=== PATIENT | male | born 1950 | race African-American/Black ===

== ENCOUNTER 2016-12-31 16:04 | Inpatient (IN) | payer MEDICARE, MEDICAID ==
[~2016-12-31] VITALS: Ht 175.3 cm; Wt 94.3 kg
[~2016-12-31 16:04] MED LIST: ALBU8.5H2 IH; GABA-532 PO; NAPR375T3 PO
[2016-12-31] MEDS ORDERED: ALBUTEROL FS 2.5 MG/3 ML VIAL.NEB ONE ×2 (16:15→17:40)
[2016-12-31] MEDS ORDERED: IPRATROPIUM NEB FS 0.5 MG/2.5 ML AMPUL.NEB ONE (16:16)
[2016-12-31] MEDS ORDERED: predniSONE 20 MG TABLET ONE (16:22)
--- NOTE | 2016-12-31 16:22 | NUR ---
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
[2016-12-31] MEDS ORDERED: predniSONE 20 MG TABLET PO ONE (16:30)
[2016-12-31] MEDS ORDERED: IPRATROPIUM NEB FS 0.5 MG/2.5 ML AMPUL.NEB NEB ONE (16:30)
[2016-12-31] MEDS ORDERED: ALBUTEROL FS 2.5 MG/3 ML VIAL.NEB NEB ONE ×2 (16:30→18:00)
[2016-12-31] MEDS ORDERED: ASPIRIN EC 81 MG TABLET.DR PO ONE (16:56)
[2016-12-31 16:59] LABS: ALBUMIN 3.7 g/dL (3.4-5.0); BILIRUBIN,DIRECT 0.1 mg/dL (0.0-0.2); BILIRUBIN,TOTAL 0.5 mg/dL (0.2-1.0); CALCIUM, SERUM 8.7 mg/dL (8.5-10.1); CREATININE 1.3 mg/dL (0.6-1.3); POTASSIUM 3.9 mmol/L (3.5-5.1); TOTAL PROTEIN, SERUM 7.5 g/dL (6.4-8.2); TROPONIN I 0.15 ng/mL (0.00-0.056)
[2016-12-31] MEDS ORDERED: ASPIRIN 81 MG TAB.CHEW PO ONE (17:00)
[2016-12-31 17:02] LABS: BASOPHILS # (AUTO) 0.1 /CMM (0.0-0.2); BASOPHILS % (AUTO) 1.4 % (0.0-2.0); EOSINOPHILS # (AUTO) 0.5 /CMM (0.0-0.7); EOSINOPHILS % (AUTO) 8.1 % (0.0-6.0); HEMATOCRIT 44 % (39-51); HEMOGLOBIN 14.3 g/dL (13.5-17.5); LYMPHOCYTES # (AUTO) 1.6 /CMM (0.8-4.8); LYMPHOCYTES % (AUTO) 25.7 % (20.0-44.0); MEAN CORPUSCULAR HEMOGLOBIN 32 PG (26.0-33.0); MEAN CORPUSCULAR HGB CONC 33 g/dl (31.0-36.0); MEAN CORPUSCULAR VOLUME 98 fL (80-96); MONOCYTES # (AUTO) 0.5 /CMM (0.1-1.30); MONOCYTES % (AUTO) 8.1 % (2.0-12.0); NEUTROPHILS # (AUTO) 3.6 /CMM (1.8-8.9); NEUTROPHILS % (AUTO) 56.7 % (43.0-81.0); PLATELET COUNT (AUTO) 302 /CMM (150-450); RDW COEFFICIENT OF VARIATION 13.4 (11.5-15.0); RED BLOOD CELL COUNT(AUTO) 4.51 MIL/uL (4.5-6.0); WHITE BLOOD COUNT (AUTO) 6.4 K/uL (4.3-11.0)
[2016-12-31] MEDS ORDERED: Magnesium 1GM/D5W 100ML PREMIX 200 ML IV ONE ×2 (17:58→18:33)
[2016-12-31] MEDS ORDERED: LEVOFLOXACIN (750 MG) 750 MG TABLET PO SCH (18:00)
[2016-12-31] MEDS ORDERED: TIOT18CA3 INH (18:10)
[2016-12-31] MEDS ORDERED: IV SET PRIMARY PUMP SET 1 EA INFUS.SET MC ONE (18:33)
[2016-12-31] MEDS ORDERED: LEVOFLOXACIN (750 MG) 750 MG TABLET ONE (18:33)
[2016-12-31] MEDS ORDERED: MAG HYDROX/AL HYDROX/SIMETH 30 ML UDC PO PRN (19:00)
[2016-12-31] MEDS ORDERED: MAGNESIUM HYDROXIDE 30 ML UDC PO PRN (19:00)
[2016-12-31] MEDS ORDERED: IPRATROPIUM NEB FS 0.5 MG/2.5 ML AMPUL.NEB NEB PRN (19:00)
[2016-12-31] MEDS ORDERED: ONDANSETRON HCL/PF 4 MG/2 ML VIAL IVP PRN (19:00)
[2016-12-31] MEDS ORDERED: HYDROCODONE/APAP 5/325MG 1 EACH TABLET PO PRN (19:00)
[2016-12-31] MEDS ORDERED: Z GUARD REMEDY 2 OZ OINT TP PRN (19:00)
[2016-12-31] MEDS ORDERED: ALBUTEROL FS 2.5 MG/0.5 ML VIAL.NEB NEB PRN (19:00)
--- NOTE | 2016-12-31 19:20 | NUR ---
PT REPORT RECIEVED FROM REJI PLUMMER, PT STATES HE IS FEELING BETTER, PT ON MONITOR, MD JEISON MADE AWARE WILL CONTINUE TO MONITOR.
[2016-12-31 20:00] VITALS: BP 147/85
--- NOTE | 2016-12-31 20:00 | NUR ---
AUDIO VISUAL ENGINEER NOTES RECEIVED FROM ER PER GEORGINA THIS 66Y.O.MALE FROM HOME,A/O X4,AMBULATORY,WITH CHIEF COMPLAINTS OF SOB DUE TO ASTHMA EPISODE FROM HOME.WAS GIVEN ALBUTEROL/ATROVENT BREATHING TREATMENT IN ER WITH RELIEF.NO SKIN ISSUES.ABDOMEN SLIGHTLY DISTENDED BUT SOFT.PER PATIENT HE'S LAST BM WAS FRIDAY 12/29 AND HE COULD NOT PASS GAS. WITH KNOWN HX OF SPINAL STENOSIS WITH SURGERY ON 04/30 2008.WHEEZING NOTED POST EPISODE HEN HE COUGHS.NO SOB.SALINE LOCK LEFT AC INTACT AND PATENT.CALL LIGHT IN REACH,NEEDS ANTICIPATED.
[2016-12-31 21:00] VITALS: BP 147/85
[2016-12-31] MEDS: ALBUTEROL FS 2.5 MG/0.5 ML VIAL.NEB NEB SCH (21:33)
[2016-12-31] MEDS: IPRATROPIUM NEB FS 0.5 MG/2.5 ML AMPUL.NEB NEB SCH (21:33)
[2017-01-01] VITALS (8 sets, daily range): BP systolic 135–154; BP diastolic 71–92
[2017-01-01] MEDS: IPRATROPIUM NEB FS 0.5 MG/2.5 ML AMPUL.NEB NEB SCH ×4 (01:29→19:50)
[2017-01-01] MEDS: ALBUTEROL FS 2.5 MG/0.5 ML VIAL.NEB NEB SCH ×4 (01:29→19:50)
--- NOTE | 2017-01-01 01:30 | NUR ---
FISHER TROLL LINE NOTES RT AT BEDSIDE FOR BREATHING TREATMENT SCHEDULED.
--- NOTE | 2017-01-01 03:00 | NUR ---
REHAB ASSISTANT NOTES RT AT BEDSIDE DOING EKG ORDERED.
--- NOTE | 2017-01-01 06:04 | NUR ---
FRAMING MILL OPERATOR NOTES NO EPISODE OF SOB.BREATHING TX TOLERATED WELL.WHEEZING ON EXERTION.INSTRUCTED NPO AFTER MIDNIGHT TILL SEEN BY CARDIO FOR POSSIBLE TEST OR PROCEDURE.IN NI ACUTE DISTRESS.NEEDS ATTENDED.WILL ENDORSE TO DAY NURSE FOR DOC.
[2017-01-01 07:02] LABS: BASOPHILS % (AUTO) 0.2 % (0.0-2.0); HEMATOCRIT 41 % (39-51); HEMOGLOBIN 13.4 g/dL (13.5-17.5); LYMPHOCYTES # (AUTO) 0.7 /CMM (0.8-4.8); LYMPHOCYTES % (AUTO) 9.1 % (20.0-44.0); MEAN CORPUSCULAR HEMOGLOBIN 32 PG (26.0-33.0); MEAN CORPUSCULAR HGB CONC 33 g/dl (31.0-36.0); MEAN CORPUSCULAR VOLUME 99 fL (80-96); MONOCYTES # (AUTO) 0.1 /CMM (0.1-1.30); MONOCYTES % (AUTO) 1.6 % (2.0-12.0); NEUTROPHILS % (AUTO) 89.1 % (43.0-81.0); PLATELET COUNT (AUTO) 291 /CMM (150-450); RDW COEFFICIENT OF VARIATION 13.2 (11.5-15.0); RED BLOOD CELL COUNT(AUTO) 4.18 MIL/uL (4.5-6.0); WHITE BLOOD COUNT (AUTO) 7.9 K/uL (4.3-11.0)
[2017-01-01 07:21] LABS: ALBUMIN 3.4 g/dL (3.4-5.0); BILIRUBIN,TOTAL 0.5 mg/dL (0.2-1.0); CALCIUM, SERUM 8.8 mg/dL (8.5-10.1); CREATININE 1.2 mg/dL (0.6-1.3); PHOSPHORUS 2.9 mg/dL (2.5-4.9); POTASSIUM 4.4 mmol/L (3.5-5.1); TOTAL PROTEIN, SERUM 7.1 g/dL (6.4-8.2)
--- NOTE | 2017-01-01 08:00 | NUR ---
METAL HANGING HELPER AM NOTES RECEIVED PT A/O X4,AMBULATORY,RESPIRATIONS NON LABORED ON ROOM AIR.NO SKIN ISSUES.ABDOMEN SLIGHTLY DISTENDED BUT SOFT.PER PATIENT HE'S LAST BM WAS FRIDAY 12/29 AND HE COULD NOT PASS GAS. PT C/O CONSTIPATION-WILL ADDRESS CONCERN TO MD.WITH KNOWN HX OF SPINAL STENOSIS WITH SURGERY ON 04/30 2008.NO SOB OR DISTRESS NOTED.WITH C/O NECK PAIN.NORCO PO GIVEN PRN FOR PAIN MGT.SALINE LOCK LEFT AC INTACT AND PATENT.CALL LIGHT WITHIN REACH,
[2017-01-01] MEDS: PANTOPRAZOLE 40 MG TABLET.DR PO SCH (08:27)
[2017-01-01] MEDS: ACETAMINOPHEN 325 MG TABLET PO PRN ×2 (08:28→19:40)
[2017-01-01] MEDS: ASPIRIN 81 MG TAB.CHEW PO SCH (10:38)
[2017-01-01] MEDS: methylPREDNISolone SOD SUCC 125 MG/2ML VIAL IV SCH ×2 (10:38→18:00)
[2017-01-01] MEDS: ATORVASTATIN 10 MG TABLET PO SCH (10:39)
[2017-01-01] MEDS: hydrALAZINE HCL 50 MG TABLET PO SCH ×3 (10:39→17:56)
--- NOTE | 2017-01-01 14:00 | NUR ---
ADMINISTERED TAP WATER ENEMA ON THE PT AND PT STATED THAT BROWN WATER JUST CAME OUT.PT PASSED OUT GAS OFTEN.ENCOURAGED PT TO DRINK FLUIDS AND AMBULATE AROUND THE HALLWAY.PT STATED THAT HE WAS HAVING SOB.PT'S O2 SAT IS 97-98%ROOM AIR WHILE IN BED AND NEVER EVEN USED O2 AT ALL.PT GETS BREATHING TX.
--- NOTE | 2017-01-01 16:00 | NUR ---
PT AMBULATES AROUND THE HALLWAY WITHOUT ANY SOB NOTED.
[2017-01-01] MEDS ORDERED: IV SET PRIMARY PUMP SET 1 EA INFUS.SET MC ONE (18:12)
[2017-01-01] MEDS: LEVOFLOXACIN 500 MG /D5W 100ML 500 MG in PREMIX 1 EA IV SCH (18:26)
--- NOTE | 2017-01-01 19:15 | NUR ---
MS RN NOTES ON BED A/O X4.ABLE TO VERBALIZED NEEDS.ABDOMEN REMAINS SLIGHTLY DISTENDED,BUT SOFT CLAIMED HE ALREADY PASSING GAS.TAP WATER ENEMA ADMINISTERED BY DAY NURSE ORDERED.IV ABX IN PROGRESS VIA IV PUMP ON LEFT HAND,SITE PATENT.ENCOURAGED AMBULATION.CALL LIGHT IN REACH,NEEDS ANTICIPATED.
--- NOTE | 2017-01-01 19:40 | NUR ---
MS RN NOTES PAIN MANAGEMENT C/O HEADACHE,MEDICATED WITH TYLENOL 650MG PO PER PATIENT REQUEST,WITH ORDER PRN FOR MILD PAIN.
--- NOTE | 2017-01-01 23:25 | NUR ---
MS RN NOTES C/O HEADACHE 5/10 ON PAIN SCALE.,MEDICATED WITH NORCO 5/325 MG.1 TAB PO ORDERED.
--- NOTE | 2017-01-02 00:50 | NUR ---
MS RN NOTES AWAKE,UPSET.ROOM MATE SO CONFUSED,TOO LOUD TO SPEAK DUE TO NATIVE.TRANSFERRED TO ANOTHER ROOM 314-1
[2017-01-02] MEDS: ZOLPIDEM TARTRATE 5 MG TABLET PO PRN ×2 (00:58→21:42)
--- NOTE | 2017-01-02 00:58 | NUR ---
MS RN NOTES MEDICATED WITH AMBIEN 5MG PO FOR INSOMNIA,PER PATIENT REQUEST
[2017-01-02] MEDS: IPRATROPIUM NEB FS 0.5 MG/2.5 ML AMPUL.NEB NEB SCH ×4 (01:51→20:05)
[2017-01-02] MEDS: ALBUTEROL FS 2.5 MG/0.5 ML VIAL.NEB NEB SCH ×4 (01:51→20:05)
--- NOTE | 2017-01-02 06:25 | NUR ---
MS RN NOTES SLEEPING AT THIS TIME.UNABLE TO ADMINISTER REMAINING ENEMA SOLUTION FROM DAY SHIFT.AMBULATE WITH STEADY GAIT.CALL LIGHT IN REACH,NEEDS ATTENDED.
[2017-01-02 06:48] LABS: EOSINOPHILS % (AUTO) 0.1 % (0.0-6.0); HEMATOCRIT 43 % (39-51); HEMOGLOBIN 14.1 g/dL (13.5-17.5); LYMPHOCYTES # (AUTO) 0.9 /CMM (0.8-4.8); LYMPHOCYTES % (AUTO) 7.8 % (20.0-44.0); MEAN CORPUSCULAR HEMOGLOBIN 32 PG (26.0-33.0); MEAN CORPUSCULAR HGB CONC 33 g/dl (31.0-36.0); MEAN CORPUSCULAR VOLUME 98 fL (80-96); MONOCYTES # (AUTO) 0.5 /CMM (0.1-1.30); NEUTROPHILS # (AUTO) 10.2 /CMM (1.8-8.9); NEUTROPHILS % (AUTO) 88.1 % (43.0-81.0); PLATELET COUNT (AUTO) 287 /CMM (150-450); RDW COEFFICIENT OF VARIATION 13.4 (11.5-15.0); RED BLOOD CELL COUNT(AUTO) 4.36 MIL/uL (4.5-6.0); WHITE BLOOD COUNT (AUTO) 11.6 K/uL (4.3-11.0)
[2017-01-02 07:07] LABS: MAGNESIUM 2.1 mg/dL (1.8-2.4); PHOSPHORUS 3.3 mg/dL (2.5-4.9)
[2017-01-02 08:00] VITALS: BP 158/83
--- NOTE | 2017-01-02 08:20 | NUR ---
MS RN RECEIVED ON BED, AWAKE,ALERT,ORIENTED X4,NOT IN ANY FORM OF DISTRESS, RESPIRATIONS EVEN AND UNLABORED,NO SOB NOTED, LUNGS ARE CLEAR,ABDOMEN SOFT,POSITIVE BOWEL SOUNDS, DENIES PAIN AT THIS TIME, WILL MONITOR PATIENT.
[2017-01-02] MEDS: ASPIRIN 81 MG TAB.CHEW PO SCH ×2 (09:00→09:21)
[2017-01-02] MEDS: methylPREDNISolone SOD SUCC 125 MG/2ML VIAL IV SCH ×2 (09:21→17:53)
[2017-01-02] MEDS: ATORVASTATIN 10 MG TABLET PO SCH (09:21)
[2017-01-02] MEDS: PANTOPRAZOLE 40 MG TABLET.DR PO SCH (09:22)
[2017-01-02] MEDS: hydrALAZINE HCL 50 MG TABLET PO SCH ×3 (09:22→17:53)
--- NOTE | 2017-01-02 09:30 | NUR ---
MS PLUMMER BREAKFAST SERVED,DUE MEDS GIVEN,TOLERATED WELL.
[2017-01-02] MEDS ORDERED: BISACODYL SUPP (10 MG) 10 MG/SUPP.RECT SUPP.RECT RC PRN (11:00)
[2017-01-02] MEDS: ACETAMINOPHEN 325 MG TABLET PO PRN (15:29)
[2017-01-02 16:00] VITALS: BP 150/73
--- NOTE | 2017-01-02 17:30 | NUR ---
MS RN PATIENT ON BED, ALL NEEDS ATTENDED,NO CHANGE OF CONDITION.
[2017-01-02] MEDS: LEVOFLOXACIN 500 MG /D5W 100ML 500 MG in PREMIX 1 EA IV SCH (17:53)
--- NOTE | 2017-01-02 19:30 | NUR ---
MS RN OPENING NOTES: PATIENT IN BED, AOX4, ON ROOM AIR, BREATHING EVEN AND UNLABORED, NO SOB , HOWEVER, EXPIRATORY WHEEZING WAS HEARD UPON AUSCULTATION. PER PATIENT, HE DOES NOT FEEL ANY DIFFICULTY BREATHING, OR ANY CHEST PAIN AT THIS TIME, ONLY BLOATING. PIV ACCESS OVER L HAND G 22 INTACT AND PATENT TO FLUSH. PROVIDED FOR COMFORT AND SAFETY. ELEVATED HOB. PROVIDED FOR COMFORT AND SAFETY. WILL CONT TO MONITOR.
[2017-01-02 20:00] VITALS: BP 148/85
--- NOTE | 2017-01-02 21:42 | NUR ---
RN NOTES: PER PATIENT, HE HAD A VERY SMALL BM AFTER DINNER, BUT STILL COMPLAINS OF BLOATNG AND CONSTIPATION. ABDOMEN IS DISTENDED, BOWEL SOUNDS HYPOACTIVE. PATIENT WAS ASKING FOR LAXATIVE AT THIS TIME. ADMINISTERED MOM PRN. WILL CONT TO MONITOR.
[2017-01-03] MEDS: ALBUTEROL FS 2.5 MG/0.5 ML VIAL.NEB NEB SCH ×3 (02:11→13:43)
[2017-01-03] MEDS: IPRATROPIUM NEB FS 0.5 MG/2.5 ML AMPUL.NEB NEB SCH ×3 (02:11→13:43)
[2017-01-03] MEDS: ACETAMINOPHEN 325 MG TABLET PO PRN (06:34)
--- NOTE | 2017-01-03 07:01 | NUR ---
MS RN CLOSING NOTES: PATIENT IN BED, AOX4, ON ROOM AIR, BREATHING EVEN AND UNLABORED, STILL AUSCULTATED SLIGHT EXPIRATORY WHEEZING. PATIENT C/O HEADACHE SCALED AT 4/10, ADMINISTERED TYLENOL 650 MG PO. PROVIDED FOR COMFORT AND SAFETY. PIV ACCESS OVER L HAND G 22 INTACT AND PATENT TO FLUSH. WILL ENDORSE TO AM RN FOR DOC.
[2017-01-03 07:13] LABS: HEMATOCRIT 45 % (39-51); HEMOGLOBIN 14.8 g/dL (13.5-17.5); LYMPHOCYTES # (AUTO) 0.8 /CMM (0.8-4.8); LYMPHOCYTES % (AUTO) 6.1 % (20.0-44.0); MEAN CORPUSCULAR HEMOGLOBIN 32 PG (26.0-33.0); MEAN CORPUSCULAR HGB CONC 33 g/dl (31.0-36.0); MEAN CORPUSCULAR VOLUME 97 fL (80-96); MONOCYTES # (AUTO) 0.8 /CMM (0.1-1.30); MONOCYTES % (AUTO) 5.6 % (2.0-12.0); NEUTROPHILS # (AUTO) 11.9 /CMM (1.8-8.9); NEUTROPHILS % (AUTO) 88.3 % (43.0-81.0); PLATELET COUNT (AUTO) 295 /CMM (150-450); RDW COEFFICIENT OF VARIATION 13.4 (11.5-15.0); RED BLOOD CELL COUNT(AUTO) 4.58 MIL/uL (4.5-6.0); WHITE BLOOD COUNT (AUTO) 13.4 K/uL (4.3-11.0)
[2017-01-03 07:27] LABS: CALCIUM, SERUM 8.8 mg/dL (8.5-10.1); CREATININE 1.1 mg/dL (0.6-1.3); MAGNESIUM 2.3 mg/dL (1.8-2.4); PHOSPHORUS 3.5 mg/dL (2.5-4.9); POTASSIUM 4.3 mmol/L (3.5-5.1)
[2017-01-03] MEDS: PANTOPRAZOLE 40 MG TABLET.DR PO SCH (07:38)
[2017-01-03 08:00] VITALS: BP 155/114
--- NOTE | 2017-01-03 08:00 | NUR ---
MS RN NOTE PT. AWAKE, ALERT AND ORIENTED X4. DENIED PAIN AND SOB. SIDE RAILS UP. CALL LIGHT WITHIN REACH. MONITOR CLOSELY.
[2017-01-03] MEDS: ATORVASTATIN 10 MG TABLET PO SCH (08:28)
[2017-01-03] MEDS: hydrALAZINE HCL 50 MG TABLET PO SCH ×2 (08:28→12:31)
[2017-01-03] MEDS: ASPIRIN 81 MG TAB.CHEW PO SCH (08:28)
[2017-01-03] MEDS: methylPREDNISolone SOD SUCC 125 MG/2ML VIAL IV SCH (09:00)
--- NOTE | 2017-01-03 10:30 | NUR ---
NOTED ABDOMINAL DISTENSION, BUT DENIED PAIN. GIVEN DUCOLAX SUPPOSITORY.
--- NOTE | 2017-01-03 11:00 | NUR ---
HAD SMALL AMOUNT BM. IMPROVED ABD DISTENSION. DR. JENKINS WAS AWARE OF IT. MONITOR CLOSELY.
[2017-01-03] MEDS ORDERED: LEVO750T21 PO (13:07)
[2017-01-03] MEDS ORDERED: PRED20TA PO (13:07)
[2017-01-03] MEDS ORDERED: Bisacodyl RC (13:07)
[2017-01-03] MEDS: LEVOFLOXACIN 500 MG /D5W 100ML 500 MG in PREMIX 1 EA IV SCH (14:52)
--- NOTE | 2017-01-03 16:10 | NUR ---
PT. AWAKE, ALERT AND ORIENTED X4. DENIED PAIN AND SOB. GAVE 6PM LEVAQUIN IVPB BEFORE DISCHARGE. GIVEN DISCHARGE INSTRUCTION TO THE PT. UNDERSTOOD WELL. REMOVED IV LINE.PT. WILL BE DISCHARGE BY TAXI.
[2017-01-03 16:22] VITALS: BP 128/99
--- NOTE | 2017-01-03 16:40 | NUR ---
DISCHARGED FROM [facility] BY TAXI.
== END 2017-01-03 16:39 | disposition home or self-care (01) | DRG 189 ==
LOC: ER 16:05 → TELE 19:50 → MED 01-01 10:02
PROVIDERS: ADMIT Family Medicine; ATTEND Family Medicine
DX: J96.21 Acute and chronic respiratory failure with hypoxia (principal); I21.4 Non-ST elevation (NSTEMI) myocardial infarction; J44.1 Chronic obstructive pulmonary disease with (acute) exacerbation; J45.901 Unspecified asthma with (acute) exacerbation; G62.9 Polyneuropathy, unspecified; J45.909 Unspecified asthma, uncomplicated; I10 Essential (primary) hypertension; F17.210 Nicotine dependence, cigarettes, uncomplicated; K56.41 Fecal impaction; I27.2 Other secondary pulmonary hypertension
CPT/HCPCS: 36415; 71010-TC; 74000-TC; 80048-TC; 80053-TC; 80076-TC; 83735-TC; 84100-TC; 84484-TC; 85025-TC; 87070-TC; 87081-TC; 93307-TC; 94799-TC; 97001-TC; A4216; A4606; J1956; J2930; J3475; Z7610

== ENCOUNTER 2017-10-21 06:27 | Inpatient (IN) | payer MEDICARE, MEDICAID ==
[~2017-10-21] VITALS: Ht 165.1 cm; Wt 89.8 kg
[~2017-10-21 06:27] MED LIST changes: -ALBU8.5H2 IH; +ALBU8.5H8 IH; +Bisacodyl RC; -GABA-532 PO; +LEVO750T21 PO; -NAPR375T3 PO; +PRED20TA PO; +TIOT18CA3 INH
--- NOTE | 2017-10-21 06:29 | NUR ---
PT RECIEVED FROM [facility] FROM HOME C/O SOB/COUGH X2 HOURS AGO "I FELT LIKE I COULDNT BREATHH WELL" AND PT RECEIVED ALBUTEROL TX EN ROUTE TO SOH. NO C/O PAIN. NO SOB AT THIS POINT WITH SLIGHT WHEEZING IN UPPER LOBES WITH ADEQUATE 02 SATURATION. A/0X4 VSS NAD. WILL CONTINUE TO MONITOR
--- NOTE | 2017-10-21 06:45 | NUR ---
CALLED RT FRO BREATHING TX
--- NOTE | 2017-10-21 06:45 | NUR ---
MANNEQUIN MOLDER AT BEDSIDE
[2017-10-21] MEDS ORDERED: ALBUTEROL FS 2.5 MG/3 ML VIAL.NEB ONE (06:57)
[2017-10-21] MEDS ORDERED: IPRATROPIUM NEB FS 0.5 MG/2.5 ML AMPUL.NEB ONE (06:57)
[2017-10-21] MEDS ORDERED: IPRATROPIUM NEB FS 0.5 MG/2.5 ML AMPUL.NEB NEB ONE ×3 (07:00→09:30)
[2017-10-21] MEDS ORDERED: methylPREDNISolone SOD SUCC 125 MG/2ML VIAL IV ONE (07:00)
[2017-10-21] MEDS ORDERED: ALBUTEROL FS 2.5 MG/3 ML VIAL.NEB NEB ONE ×2 (07:00→09:30)
[2017-10-21] MEDS ORDERED: LEVOFLOXACIN 750 MG /D5W 150ML 150 ML IV ONE ×2 (07:00→07:08)
[2017-10-21] MEDS ORDERED: methylPREDNISolone SOD SUCC 125 MG/2ML VIAL ONE (07:08)
[2017-10-21 07:16] LABS: BASOPHILS # (AUTO) 0.1 /CMM (0.0-0.2); BASOPHILS % (AUTO) 0.9 % (0.0-2.0); EOSINOPHILS # (AUTO) 0.8 /CMM (0.0-0.7); EOSINOPHILS % (AUTO) 8.8 % (0.0-6.0); HEMATOCRIT 40 % (39-51); HEMOGLOBIN 13.4 g/dL (13.5-17.5); LYMPHOCYTES # (AUTO) 2.4 /CMM (0.8-4.8); LYMPHOCYTES % (AUTO) 27.1 % (20.0-44.0); MEAN CORPUSCULAR HEMOGLOBIN 33 PG (26.0-33.0); MEAN CORPUSCULAR HGB CONC 33 g/dl (31.0-36.0); MEAN CORPUSCULAR VOLUME 99 fL (80-96); MONOCYTES # (AUTO) 0.7 /CMM (0.1-1.30); MONOCYTES % (AUTO) 7.2 % (2.0-12.0); PLATELET COUNT (AUTO) 278 /CMM (150-450); RDW COEFFICIENT OF VARIATION 13.6 (11.5-15.0); RED BLOOD CELL COUNT(AUTO) 4.07 MIL/uL (4.5-6.0)
[2017-10-21 07:24] LABS: CALCIUM, SERUM 8.6 mg/dL (8.5-10.1); CREATININE 1.1 mg/dL (0.6-1.3); POTASSIUM 3.7 mmol/L (3.5-5.1)
[2017-10-21 07:31] LABS: TROPONIN I 0.123 ng/mL (0.00-0.056)
[2017-10-21 07:36] LABS: ALBUMIN 3.7 g/dL (3.4-5.0); BILIRUBIN,DIRECT 0.2 mg/dL (0.0-0.2); BILIRUBIN,TOTAL 0.9 mg/dL (0.2-1.0); TOTAL PROTEIN, SERUM 7.7 g/dL (6.4-8.2)
[2017-10-21] MEDS ORDERED: ASPIRIN EC 81 MG TABLET.DR PO ONE (07:49)
[2017-10-21] MEDS ORDERED: ASPIRIN 81 MG TAB.CHEW PO ONE (08:00)
--- NOTE | 2017-10-21 08:58 | NUR ---
ROOM 313.2 KACEY PLUMMER
[2017-10-21] MEDS ORDERED: ONDANSETRON HCL/PF 4 MG/2 ML VIAL IVP PRN (09:00)
[2017-10-21] MEDS ORDERED: CARVEDILOL 6.25 MG TABLET PO SCH (09:00)
[2017-10-21] MEDS ORDERED: MAGNESIUM HYDROXIDE 30 ML UDC PO PRN (09:00)
[2017-10-21] MEDS ORDERED: MAG HYDROX/AL HYDROX/SIMETH 30 ML UDC PO PRN (09:00)
[2017-10-21] MEDS ORDERED: Z GUARD REMEDY 2 OZ OINT TP PRN (09:00)
[2017-10-21] MEDS ORDERED: ALBUTEROL FS 2.5 MG/0.5 ML VIAL.NEB NEB ONE (09:00)
[2017-10-21] MEDS ORDERED: HYDROCODONE/APAP 5/325MG 1 EACH TABLET PO PRN (09:00)
--- NOTE | 2017-10-21 09:10 | NUR ---
GAVE REPORT TO KACEY PLUMMER TELE ROOM 313-2 ADMITTING DX COPD EXACERBATION DR GOLDSTEIN
--- NOTE | 2017-10-21 09:14 | NUR ---
RECEIVED REPORT FROM ER
[2017-10-21 09:30] VITALS: BP 134/83
[2017-10-21] MEDS: ENOXAPARIN SODIUM 40 MG/0.4 ML DISP.SYRIN SQ SCH (09:30)
[2017-10-21] MEDS: methylPREDNISolone SOD SUCC 40 MG/ML VIAL IV SCH ×3 (10:06→17:01)
--- NOTE | 2017-10-21 11:20 | NUR ---
PATIENT ARRIVED TO UNIT VIA A GURNEY AND PLACED IN ROOM 313-2.
[2017-10-21 12:00] VITALS: BP 143/86
[2017-10-21] MEDS: ALBUTEROL FS 2.5 MG/3 ML VIAL.NEB NEB SCH ×4 (13:00→23:20)
[2017-10-21] MEDS: IPRATROPIUM NEB FS 0.5 MG/2.5 ML AMPUL.NEB NEB SCH ×4 (13:00→23:20)
[2017-10-21 16:00] VITALS: BP 136/93
--- NOTE | 2017-10-21 19:24 | NUR ---
RN CLOSING NOTES ENDORSED TO ED SPECIAL EDUCATION TEACHER NURSE. PATIENT IS IN BED NO SIGNS AND SYMPTOMS OF DISTRESS. BREATHING IS BILATERALLY EVEN AND UNLABORED, WHEEZING. ALL NURSING CARE ANTICIPATED AND ATTENDED FOR. PATIENT KEPT CLEAN AND DRY. BED IN LOW POSITION, LOCKED AND TWO SIDE RAILS ARE UP. CALL LIGHT WITHIN REACH FOR SAFETY.
--- NOTE | 2017-10-21 19:49 | NUR ---
RN INITIAL NOTES Received pt sitting upright in bed, watching television. Awake, alert, and responsive. Currently receiving O2 @2L/min via mask, saturating at 97%. c/o shortness of breath after walking to and from the bathroom. Denies any chest pain. peripheral iv to right hand intact, patent. dressing kept clean and dry. reminded pt to use call light when assistance is needed, call light is left within reach. will continue to monitor throughout shift for continuity of care.
[2017-10-21 20:00] VITALS: BP 152/94
[2017-10-22] VITALS: BP 125/78
--- NOTE | 2017-10-22 00:30 | NUR ---
RN NOTES Administer Byers 5/[address] 7/10 to left back. Noted to be effective, PL decrease to 2/10 and is tolerable. Will continue to monitor.
[2017-10-22] MEDS: IPRATROPIUM NEB FS 0.5 MG/2.5 ML AMPUL.NEB NEB SCH ×6 (03:09→23:30)
[2017-10-22] MEDS: ALBUTEROL FS 2.5 MG/3 ML VIAL.NEB NEB SCH ×6 (03:09→23:30)
[2017-10-22 04:00] VITALS: BP 133/82
--- NOTE | 2017-10-22 06:36 | NUR ---
CHEMICAL DEPENDENCY THERAPIST CLOSING NOTES All due meds given, needs met and rendered. Pt remains a/o x4, respirations are even and unlabored, not in any acute distress noted. Currently on O2 @2L/min via NC, saturating at 98%. Denies any pain at this time. Peripheral IV to right hand intact, dressing kept clean and dry. No new skin injuries noted. On tele w/ SR 90. Deneis any chest pain. Pt will continue hospitalization with bronchodilators and steroids. Reminded pt to use call light when assistance is needed, call light left within reach. Will endorse to next shift for continuity of care.
[2017-10-22 07:13] LABS: BASOPHILS % (AUTO) 0.1 % (0.0-2.0); EOSINOPHILS % (AUTO) 0.1 % (0.0-6.0); HEMATOCRIT 38 % (39-51); HEMOGLOBIN 12.8 g/dL (13.5-17.5); LYMPHOCYTES % (AUTO) 9.2 % (20.0-44.0); MEAN CORPUSCULAR HEMOGLOBIN 33 PG (26.0-33.0); MEAN CORPUSCULAR HGB CONC 34 g/dl (31.0-36.0); MEAN CORPUSCULAR VOLUME 99 fL (80-96); MONOCYTES # (AUTO) 0.5 /CMM (0.1-1.30); NEUTROPHILS # (AUTO) 9.9 /CMM (1.8-8.9); NEUTROPHILS % (AUTO) 86.6 % (43.0-81.0); PLATELET COUNT (AUTO) 294 /CMM (150-450); RDW COEFFICIENT OF VARIATION 13.5 (11.5-15.0); RED BLOOD CELL COUNT(AUTO) 3.84 MIL/uL (4.5-6.0); WHITE BLOOD COUNT (AUTO) 11.4 K/uL (4.3-11.0)
[2017-10-22 07:16] LABS: CALCIUM, SERUM 8.4 mg/dL (8.5-10.1); MAGNESIUM 2.1 mg/dL (1.8-2.4); POTASSIUM 4.3 mmol/L (3.5-5.1)
[2017-10-22 08:00] VITALS: BP 129/75
--- NOTE | 2017-10-22 08:00 | NUR ---
RN NOTES RECEIVED PATIENT, AWAKE ALERT AND VERBALLY RESPONSIVE, IN BED RESTING COMFORTABLY, ABLE TO MAKE NEEDS KNOWN. RESPIRATIONS EVEN AND UNLABORED, DENIES ANY PAIN OR DISCOMFORT AT THIS TIME. IV ACCESS TO RIGHT HAND PATENT AND INTACT NO REDNESS OR INFILTRATION NOTED. KEPT CLEAN AND COMFORTABLE, SAFETY MEASURES IN PLACE WILL CONTINUE TO MONITOR
[2017-10-22] MEDS: ENOXAPARIN SODIUM 40 MG/0.4 ML DISP.SYRIN SQ SCH (09:00)
[2017-10-22] MEDS: LEVOFLOXACIN 750 MG /D5W 150ML 750 MG in PREMIX 1 EA IV SCH (09:44)
[2017-10-22] MEDS: methylPREDNISolone SOD SUCC 40 MG/ML VIAL IV SCH ×3 (09:44→16:41)
[2017-10-22] MEDS: ACETAMINOPHEN 325 MG TABLET PO PRN ×2 (10:54→18:36)
[2017-10-22] MEDS: ASPIRIN 81 MG TAB.CHEW PO SCH (10:55)
[2017-10-22] MEDS ORDERED: FLU VACC QS 2017-18(36MOS+)/PF 0.5 ML DISP.SYRIN IM ONE (11:00)
--- NOTE | 2017-10-22 15:57 | NUR ---
spoke with patient, he is alert and pleasant. He lives alone in the upper level apartment that has elevator access. He is ambulatory and independent with adl's. Has no DME or homehealth reported. Patient request assistance with transportation on dc- taxi voucher. Addendum: 10/22/17 at 1557 by ILIR LOZANO RN Amended: Links added.
[2017-10-22 16:00] VITALS: BP 140/76
--- NOTE | 2017-10-22 19:30 | NUR ---
RN NOTES PATIENT, AWAKE ALERT AND VERBALLY RESPONSIVE, IN BED RESTING COMFORTABLY, ABLE TO MAKE NEEDS KNOWN. RESPIRATIONS EVEN AND UNLABORED, DENIES ANY PAIN OR DISCOMFORT AT THIS TIME. IV ACCESS TO LEFT HAND PATENT AND INTACT NO REDNESS OR INFILTRATION NOTED. KEPT CLEAN AND COMFORTABLE, SAFETY MEASURES IN PLACE, ENDORSED TO NEXT SHIFT FOR CONTINUE OF CARE
--- NOTE | 2017-10-22 19:30 | NUR ---
MS RN OPENING NOTES RECEIVED PATIENT, IN BED RESTING COMFORTABLY, A & O X 4. RESPIRATIONS EVEN AND UNLABORED, DENIES ANY PAIN OR ANY ACUTE DISCOMFORT AT THIS TIME. ON O2 @ 2 LPM FOR BREATHING COMFORT. IV ACCESS TO LEFT HAND, SL, PATENT AND INTACT NO REDNESS OR INFILTRATION NOTED. SAFETY MEASURES IN PLACE. BED IN LOW LOCKED POSITION. CALL LIGHT WITHIN REACH. WILL CONTINUE TO MONITOR
[2017-10-22 20:00] VITALS: BP 122/69
[2017-10-22 20:13] VITALS: BP 122/69
--- NOTE | 2017-10-22 21:01 | NUR ---
PT REFUSED CPAP RT APPROACHED THE PT & EXPLAINED THE NEED FOR CPAP, BUT PT REFUSED TO HAVE CPAP ON TONIGHT DESPITE OF EXPLAINING RISKS & BENEFITS. RT WILL ATTEMPT AGAIN LATER IF PT AGREES.
[2017-10-22] MEDS: ZOLPIDEM TARTRATE 5 MG TABLET PO PRN (21:17)
--- NOTE | 2017-10-22 21:17 | NUR ---
PRN AMBIEN GIVEN PATIENT REQUESTED FOR AMBIEN FOR SLEEPLESSNESS. PRN AMBIEN GIVEN & WILL REASSESS FOR EFFECTIVENESS.
--- NOTE | 2017-10-22 21:23 | NUR ---
REFUSED CPAP AGAIN OFFERED CPAP TO THE PT AGAIN ORDERED, PT STATED THAT HE HAS BEEN USING IT BEFORE BUT HE MIGHT GET HEADACHE AGAIN TONIGHT WITH USE OF CPAP, SO HE WANTS TO TRY TONIGHT WITHOUT USE OF CPAP. PT ON O2 @ 2 LMP VIA NC, NO SOB, NO C/O CHEST PAIN @ THIS TIME. CONTINUING TO MONITOR.
--- NOTE | 2017-10-23 | NUR ---
PT refused cpap for tonight, wants to take a break from cpap says it causes headach
[2017-10-23] MEDS: IPRATROPIUM NEB FS 0.5 MG/2.5 ML AMPUL.NEB NEB SCH ×5 (03:30→20:00)
[2017-10-23] MEDS: ALBUTEROL FS 2.5 MG/3 ML VIAL.NEB NEB SCH ×5 (03:30→20:00)
[2017-10-23] MEDS: ACETAMINOPHEN 325 MG TABLET PO PRN ×2 (04:28→21:50)
--- NOTE | 2017-10-23 04:28 | NUR ---
PRN TYLENOL GIVEN PATIENT ASKED FOR TYLENOL FOR HEADACHE. VS CHECKED & WNL. PRN TYLENOL GIVEN. WILL MONITOR FOR EFFECTIVENESS.
--- NOTE | 2017-10-23 07:10 | NUR ---
MS RN CLOSING NOTES PATIENT SLEPT WELL @ NIGHT, A & O X 4. RESPIRATIONS EVEN AND UNLABORED, DENIES ANY PAIN OR ANY ACUTE DISCOMFORT AT THIS TIME. ON O2 @ 2 LPM FOR BREATHING COMFORT. IV ACCESS TO LEFT HAND, SL, PATENT AND INTACT NO REDNESS OR INFILTRATION NOTED. PRN TYLENOL GIVEN FOR HEADACHE & WAS EFFECTIVE. SAFETY MEASURES IN PLACE. BED IN LOW LOCKED POSITION. CALL LIGHT WITHIN REACH. WILL ENDORSE TO AM RN FOR CONTINUITY OF CARE.
--- NOTE | 2017-10-23 07:30 | NUR ---
RN NOTES RECEIVED PATIENT, AWAKE ALERT AND VERBALLY RESPONSIVE, IN BED RESTING COMFORTABLY, ABLE TO MAKE NEEDS KNOWN. RESPIRATIONS EVEN AND UNLABORED, DENIES ANY PAIN OR DISCOMFORT AT THIS TIME. IV ACCESS TO LEFT HAND PATENT AND INTACT NO REDNESS OR INFILTRATION NOTED. KEPT CLEAN AND COMFORTABLE, SAFETY MEASURES IN PLACE WILL CONTINUE TO MONITOR
[2017-10-23 07:41] LABS: HEMATOCRIT 38 % (39-51); HEMOGLOBIN 12.9 g/dL (13.5-17.5); LYMPHOCYTES # (AUTO) 0.9 /CMM (0.8-4.8); LYMPHOCYTES % (AUTO) 6.4 % (20.0-44.0); MEAN CORPUSCULAR HEMOGLOBIN 34 PG (26.0-33.0); MEAN CORPUSCULAR HGB CONC 34 g/dl (31.0-36.0); MEAN CORPUSCULAR VOLUME 100 fL (80-96); MONOCYTES # (AUTO) 0.9 /CMM (0.1-1.30); MONOCYTES % (AUTO) 6.3 % (2.0-12.0); NEUTROPHILS % (AUTO) 87.3 % (43.0-81.0); PLATELET COUNT (AUTO) 298 /CMM (150-450); RDW COEFFICIENT OF VARIATION 13.3 (11.5-15.0); RED BLOOD CELL COUNT(AUTO) 3.82 MIL/uL (4.5-6.0); WHITE BLOOD COUNT (AUTO) 13.8 K/uL (4.3-11.0)
[2017-10-23 07:56] LABS: CALCIUM, SERUM 8.8 mg/dL (8.5-10.1); MAGNESIUM 2.4 mg/dL (1.8-2.4); POTASSIUM 4.5 mmol/L (3.5-5.1)
[2017-10-23 08:00] VITALS: BP_SYST 119; BP_SYST 155; BP_DIAS 73; BP_DIAS 79; BP_DIAS 80
[2017-10-23] MEDS: ASPIRIN 81 MG TAB.CHEW PO SCH (09:03)
[2017-10-23] MEDS: ENOXAPARIN SODIUM 40 MG/0.4 ML DISP.SYRIN SQ SCH (09:05)
[2017-10-23] MEDS: methylPREDNISolone SOD SUCC 40 MG/ML VIAL IV SCH ×3 (09:10→17:41)
[2017-10-23] MEDS: LEVOFLOXACIN 750 MG /D5W 150ML 750 MG in PREMIX 1 EA IV SCH (09:10)
[2017-10-23 16:00] VITALS: BP 131/74
--- NOTE | 2017-10-23 19:34 | NUR ---
RN NOTES PATIENT, AWAKE ALERT AND VERBALLY RESPONSIVE, IN BED RESTING COMFORTABLY, ABLE TO MAKE NEEDS KNOWN. RESPIRATIONS EVEN AND UNLABORED, DENIES ANY PAIN OR DISCOMFORT AT THIS TIME. IV ACCESS TO LEFT HAND PATENT AND INTACT NO REDNESS OR INFILTRATION NOTED. KEPT CLEAN AND COMFORTABLE, SAFETY MEASURES IN PLACE ENDORSED TO NEXT SHIFT FOR CONTINUITY OF CARE
--- NOTE | 2017-10-23 19:45 | NUR ---
MS RN INITIAL NOTES PT IS IN BED AWAKE AND ALERT, ABLE TO MAKE NEEDS KNOWN. BREATHING EVENLY AND UNLABORED, NO SIGNS OF SOB OR DISTRESS. DENIES PAIN AT THIS TIME. IV ACCESS IS INTACT AND PATENT. BED IS IN LOW AND LOCKED POSITION, CALL LIGHT WITHIN REACH. WILL CONTINUE TO MONITOR PT
[2017-10-23 20:00] VITALS: BP 145/85
[2017-10-24] MEDS: IPRATROPIUM NEB FS 0.5 MG/2.5 ML AMPUL.NEB NEB SCH ×4 (00:16→11:08)
[2017-10-24] MEDS: ALBUTEROL FS 2.5 MG/3 ML VIAL.NEB NEB SCH ×4 (00:16→11:08)
[2017-10-24] MEDS: ZOLPIDEM TARTRATE 5 MG TABLET PO PRN (02:19)
--- NOTE | 2017-10-24 06:32 | NUR ---
MS RN CLOSING NOTES PT IS IN BED RESTING. NO SIGNS OF SOB OR DISTRESS. BREATHING EVENLY AND UNLABORED ON 2L NC. NO ACUTE CHANGES THROUGHOUT THE SHIFT. ALL NEEDS WERE ANTICIPATED AND MET. BED IS IN LOW AND LOCKED POSITION, CALL LIGHT WITHIN REACH. WILL ENDORSE TO DAYSHIFT.
--- NOTE | 2017-10-24 08:30 | NUR ---
RN NOTES UPON BEGINNING OF SHIFT, PATIENT RESTING IN BED, NONLABORED BREATHING NOTED ON 2 L NASAL CANNULA. PATIENT DENIES PAIN. IV SITE PATENT AND INTACT. BED IN LOWEST LOCKED POSITION.CALL LIGHT WITHIN REACH, ENDORSED TO DOMITILA RN
[2017-10-24] MEDS: methylPREDNISolone SOD SUCC 40 MG/ML VIAL IV SCH (08:53)
[2017-10-24] MEDS: ASPIRIN 81 MG TAB.CHEW PO SCH (08:53)
[2017-10-24] MEDS: LEVOFLOXACIN 750 MG /D5W 150ML 750 MG in PREMIX 1 EA IV SCH (08:53)
[2017-10-24] MEDS: ENOXAPARIN SODIUM 40 MG/0.4 ML DISP.SYRIN SQ SCH (08:54)
--- NOTE | 2017-10-24 09:00 | NUR ---
ms rn breakfast served,due meds given, tolerated well. hernán warren discharge today as planned.
--- NOTE | 2017-10-24 10:00 | NUR ---
ms rn was seen by bhavani w/ discharge order, all needs attended.
[2017-10-24 11:25] VITALS: BP 106/69
--- NOTE | 2017-10-24 14:25 | NUR ---
MS RN PRESCRIPTIONS FAXED TO [facility], SPOKE TO NIRANJAN, WENT HOME VIA TAXI VOUCHER, ALL NEEDS ATTENDED.
== END 2017-10-24 14:30 | disposition home or self-care (01) | DRG 280 ==
LOC: ER 06:28 → TELE 09:15 → MED 10-22 11:13
PROVIDERS: ADMIT Internal Medicine; ATTEND Internal Medicine
DX: I21.A1 Myocardial infarction type 2 (principal); J96.21 Acute and chronic respiratory failure with hypoxia; I11.0 Hypertensive heart disease with heart failure; I50.9 Heart failure, unspecified; J44.1 Chronic obstructive pulmonary disease with (acute) exacerbation; J44.0 Chronic obstructive pulmonary disease with (acute) lower respiratory infection; Z88.0 Allergy status to penicillin; G47.33 Obstructive sleep apnea (adult) (pediatric); E78.5 Hyperlipidemia, unspecified; F17.210 Nicotine dependence, cigarettes, uncomplicated; J20.9 Acute bronchitis, unspecified; I25.10 Atherosclerotic heart disease of native coronary artery without angina pectoris; K59.00 Constipation, unspecified; G62.9 Polyneuropathy, unspecified; Z79.899 Other long term (current) drug therapy; D72.829 Elevated white blood cell count, unspecified; T38.0X5A Adverse effect of glucocorticoids and synthetic analogues, initial encounter; Z82.49 Family history of ischemic heart disease and other diseases of the circulatory system
CPT/HCPCS: 36415; 71045-TC; 80048-TC; 80061-TC; 80076-TC; 83605-TC; 83735-TC; 83880; 84100-TC; 84484-TC; 85025-TC; 87040-TC; 87081-TC; 87400; 93307-TC; 94799-TC; A4216; A4606; J1650; J1956; J2920; J2930; Q2036; Z7610

== ENCOUNTER 2019-04-22 21:47 | Emergency (ER) | payer MEDICARE, MEDICAID ==
[~2019-04-22] VITALS: Ht 177.8 cm; Wt 99.8 kg
[~2019-04-22 21:47] MED LIST changes: -Bisacodyl RC; -LEVO750T21 PO; -PRED20TA PO
--- NOTE | 2019-04-22 21:52 | NUR ---
PT CARROLL FROM HOME FOR SOB; ALBUTEROL GIVEN SIZING MACHINE TENDER; PT AAOX4, -SOB, PT ON MONITOR, VSS, PENDING MD PATEL
[2019-04-22] MEDS ORDERED: ALBUTEROL FS 2.5 MG/0.5 ML VIAL.NEB NEB ONE (22:30)
[2019-04-22] MEDS ORDERED: DEXAMETHASONE SOD PHOSPHATE 4 MG/ML VIAL IM ONE (22:30)
[2019-04-22] MEDS ORDERED: IPRATROPIUM NEB FS 0.5 MG/2.5 ML AMPUL.NEB NEB ONE (22:30)
[2019-04-22] MEDS ORDERED: DEXAMETHASONE SOD PHOSPHATE 10 MG/ML VIAL ONE (22:36)
[2019-04-22] MEDS ORDERED: ALBUTEROL FS 2.5 MG/0.5 ML VIAL.NEB ONE (22:39)
[2019-04-22] MEDS ORDERED: IPRATROPIUM NEB FS 0.5 MG/2.5 ML AMPUL.NEB ONE (22:39)
--- NOTE | 2019-04-22 23:00 | NUR ---
PT PROVIDED WITH TAXI VOUCHER
[2019-04-22 23:37] VITALS: BP 155/92
--- NOTE | 2019-04-22 23:37 | NUR ---
Patient discharged to home in stable condition. Written and verbal after care instructions given. Patient verbalizes understanding of instruction.
== END 2019-04-22 23:41 | disposition home or self-care (01) ==
LOC: ER 21:50
DX: J44.1 Chronic obstructive pulmonary disease with (acute) exacerbation (principal); J98.01 Acute bronchospasm; I10 Essential (primary) hypertension; G62.9 Polyneuropathy, unspecified; F17.200 Nicotine dependence, unspecified, uncomplicated; Z79.899 Other long term (current) drug therapy; Z88.0 Allergy status to penicillin
CPT/HCPCS: 71045; 94640; 96372; 99283; J1100